=== PATIENT | male | born 2005 | race Two or more races ===

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

== ENCOUNTER 2025-05-29 12:10 | Outpatient (CLI) | payer OTHER | END 2025-05-29 12:12 | disposition home or self-care (01) | LOC: TOM 12:10 | DX: R59.0 Localized enlarged lymph nodes (principal) ==